=== PATIENT | male | born 1995 | race Hispanic/Latino ===

== ENCOUNTER 2020-09-25 18:20 | Emergency (ER) | payer OTHER, BC ==
[2020-09-25] MEDS ORDERED: Morphine 4 MG/ML VIAL ONE (20:09)
[2020-09-25] MEDS ORDERED: HYDROcodone/Acetaminophen 10/325 mg Tablet ONE (21:31)
== END 2020-09-25 21:40 | disposition home or self-care (01) ==
LOC: ERS 18:20
DX: S22.32XA Fracture of one rib, left side, initial encounter for closed fracture (principal); S16.1XXA Strain of muscle, fascia and tendon at neck level, initial encounter; S46.912A Strain of unspecified muscle, fascia and tendon at shoulder and upper arm level, left arm, initial encounter; V89.2XXA Person injured in unspecified motor-vehicle accident, traffic, initial encounter
CPT/HCPCS: 71045; 72125; 96374; J2270